=== PATIENT | male | born 1990 | race Two or more races ===

== ENCOUNTER 2016-11-10 20:23 | Emergency (ER) | payer MEDICAID ==
[~2016-11-10] VITALS: Ht 167.6 cm; Wt 80.7 kg
[2016-11-10] MEDS ORDERED: cefTRIAXone 1GM/50ML D5W 50 ML IV ONE (22:00)
[2016-11-10] MEDS ORDERED: HYDROcodone-ACET 10/325MG TAB PO ONE (22:00)
[2016-11-10] MEDS ORDERED: LIDOCAINE 1% HCL (LOCAL ANESTH.) INJ 20ML MDV ONE (22:11)
[2016-11-10] MEDS ORDERED: LIDOCAINE HCL 1 % PF INJ 2ML AMP IJ ONE (23:00)
[2016-11-10 23:30] VITALS: BP 137/92
[2016-11-11] MEDS ORDERED: ONDANSETRON HCL 4 MG/2 ML VIAL IV ONE (00:30)
[2016-11-11] MEDS ORDERED: MORPHINE SULFATE 4 MG/ML SYRG IV ONE (00:30)
== END 2016-11-11 00:37 | disposition home or self-care (01) ==
LOC: ER 20:27
DX: S01.81XA Laceration without foreign body of other part of head, initial encounter (principal); S83.92XA Sprain of unspecified site of left knee, initial encounter; S93.402A Sprain of unspecified ligament of left ankle, initial encounter; S20.212A Contusion of left front wall of thorax, initial encounter; S00.81XA Abrasion of other part of head, initial encounter; S40.812A Abrasion of left upper arm, initial encounter; S40.811A Abrasion of right upper arm, initial encounter; S80.812A Abrasion, left lower leg, initial encounter; S80.811A Abrasion, right lower leg, initial encounter; R07.9 Chest pain, unspecified; Y08.89XA Assault by other specified means, initial encounter; Y93.89 Activity, other specified; Y92.89 Other specified places as the place of occurrence of the external cause; Y99.8 Other external cause status; S93.401A Sprain of unspecified ligament of right ankle, initial encounter
CPT/HCPCS: 12013; 70450; 71101; 73562; 73600; 96365; 96375; 99284; J0696; J2001; J2270; J2405